=== PATIENT | female | born 1970 | race Caucasian/White ===

== ENCOUNTER 2016-05-08 11:09 | Emergency (ER) | payer MEDICAID ==
[2016-05-08] MEDS ORDERED: SODIUM CHLORIDE 0.9% 1,000 ML IV ONE (11:31)
[2016-05-08] MEDS ORDERED: NITROFURANTOIN MACRO 100 MG CAPSULE PO STA (13:55)
[2016-05-08] MEDS ORDERED: NITROFURANTOIN MACRO 100 MG CAPSULE PO ONE (13:58)
== END 2016-05-08 14:12 | disposition home or self-care (01) ==
DX: R55 Syncope and collapse (principal); N30.00 Acute cystitis without hematuria; S00.83XA Contusion of other part of head, initial encounter; S00.81XA Abrasion of other part of head, initial encounter; W18.30XA Fall on same level, unspecified, initial encounter; Y92.000 Kitchen of unspecified non-institutional (private) residence as the place of occurrence of the external cause; E03.9 Hypothyroidism, unspecified; F17.200 Nicotine dependence, unspecified, uncomplicated
CPT/HCPCS: 36415; 70450; 80053; 80306; 80307; 80320; 80329; 81001; 83690; 84484; 85025; 93005; 93010; 96360; 96361; 99284; 99285; A9270

== ENCOUNTER 2017-02-04 09:44 | Outpatient (CLI) | payer MEDICAID ==
[2017-02-04 13:48] LABS: BASOPHILS % (AUTO) 0.5 %; HCT - HEMATOCRIT 40.4 % (37.0-47.0); HGB - HEMOGLOBIN 13.4 g/dL (12.0-16.0); LYMPHOCYTES # (AUTO) 1.9 10^3/uL (1.5-3.5); LYMPHOCYTES % (AUTO) 25.7 %; MEAN CORPUSCULAR HEMOGLOBIN 30.4 pg (27.0-31.0); MEAN CORPUSCULAR VOLUME 92.1 fL (81.0-99.0); MEAN PLATELET VOLUME 8.5 fL (7.9-10.8); MONOCYTES # (AUTO) 0.2 10^3/uL (0.0-1.0); MONOCYTES % (AUTO) 3.2 %; NEUTROPHILS # (AUTO) 5.2 10^3/uL (1.5-6.6); NEUTROPHILS % (AUTO) 70.6 %; NUCLEATED RED BLOOD CELLS AUTO 0.1 /100WBC; RED BLOOD COUNT 4.39 10^6/uL (4.20-5.40); RED CELL DISTRIBUTION WIDTH 14.1 % (12.0-15.0); UNCORRECTED WHITE BLOOD COUNT 7.4 x10^3/uL; WHITE BLOOD COUNT 7.4 x10^3/uL (4.8-10.8)
[2017-02-04 14:12] LABS: ALBUMIN/GLOBULIN RATIO 1.5 (1.0-2.2); BILIRUBIN,TOTAL 0.3 mg/dL (0.2-1.0); BUN - BLOOD UREA NITROGEN 8 mg/dL (6-20); CALCIUM 9.6 mg/dL (8.5-10.3); CARBON DIOXIDE - CO2 27 mmol/L (21-32); CHLORIDE 101 mmol/L (101-111); CHOL/HDL RATIO 4.6 (<4.4); CHOLESTEROL 213 mg/dL; CREATININE 1.3 mg/dL (0.4-1.0); GFR - MDRD 44 (>89); GLUCOSE 88 mg/dL (70-100); HDL CHOLESTEROL 46 mg/dL; LDL/HDL RATIO 2.5 (<4.4); POTASSIUM 4.2 mmol/L (3.5-5.0); SODIUM 138 mmol/L (135-145); TOTAL PROTEIN 6.8 g/dL (6.7-8.2); TRIGLYCERIDES 265 mg/dL; VLDL CHOLESTEROL 53 mg/dL
== END 2017-02-04 09:45 | disposition home or self-care (01) ==
LOC: LAB.N 09:44
PROVIDERS: ATTEND Nurse Practitioner Gerontology
DX: E78.5 Hyperlipidemia, unspecified (principal); I10 Essential (primary) hypertension; E03.9 Hypothyroidism, unspecified
CPT/HCPCS: 36415; 80053; 80061; 84443; 85025

== ENCOUNTER 2017-11-29 14:03 | Emergency (ER) | payer MEDICAID ==
[2017-11-29] MEDS ORDERED: MORPHINE 2 MG/ML SYRINGE IVP STA (14:35)
[2017-11-29] MEDS ORDERED: ONDANSETRON 4 MG/2 ML VIAL IVP STA (14:35)
--- NOTE | 2017-11-29 14:38 | ED Physician Documentation ---
History of Present Illness - Stated complaint Stated Complaint: UPPER ABD PAIN - Chief complaint Chief Complaint: General - History obtained from History obtained from: Patient, Family - History of Present Illness Timing: Last night Pain level max: 8 Pain level now: 6 Improved by: nothing Worsened by: nothing - Additonal information Additional information: Patient is a 47-year-old female who presents to the emergency department complaining of upper abdominal pain since last night. She states that her stomach became hard and firm. States she had nausea but no vomiting. Started on Macrobid yesterday for a UTI. No other medication changes. No fevers. No vomiting or diarrhea. States the pain has continued today. Has not had similar pain in the past. She also states that occasionally over the past several months she feels like she does not have good strength on her left side, has an appointment with her PCP next week for this. Currently feels normal. also has mild frontal headache, similar to past headaches. Review of Systems Constitutional: denies: Fever, Chills Nose: denies: Rhinorrhea / runny nose, Congestion Respiratory: denies: Cough GI: reports: Nausea. denies: Vomiting, Diarrhea, Hematemesis Skin: denies: Rash Musculoskeletal: denies: Neck pain, Back pain Neurologic: denies: Focal weakness, Numbness, Headache PD PAST MEDICAL HISTORY - Past Medical History Past Medical History: Yes Respiratory: Asthma, Pneumonia Endocrine/Autoimmune: HyPOthyroidism Psych: Depression, Bipolar disorder - Past Surgical History Past Surgical History: No - Present Medications Home Medications: Ambulatory Orders Medication Instructions Recorded Confirmed LORazepam [Ativan] 0.5 mg PO HS 01/13/16 05/08/16 Levothyroxine [Synthroid] 100 mcg PO QDAC 01/13/16 05/08/16 Lisinopril 10 mg PO DAILY 01/13/16 05/08/16 Venlafaxine [Effexor] 37.5 mg PO DAILY 01/13/16 05/08/16 buPROPion [Wellbutrin Sr] 200 mg PO DAILY 01/13/16 05/08/16 Nitrofurantoin Monohyd/M-Cryst 100 mg PO BID 5 Days capsule 05/08/16 [Macrobid 100 mg Capsule] lamoTRIgine [LaMICtal] 150 mg PO BID 05/08/16 05/08/16 Aspirin 81 mg PO DAILY 11/29/17 11/29/17 Cephalexin [Keflex] 500 mg PO Q6H #20 capsule 11/29/17 HYDROcodone/ACET 7.5/325 [[place] 1 each PO Q6H PRN #10 tablet 11/29/17 7.5/325] Ondansetron Odt [Zofran] 4 mg TL Q6H PRN #10 tablet 11/29/17 traZODone [Desyrel] 100 mg PO DAILY PM 11/29/17 11/29/17 - Allergies Allergies/Adverse Reactions: Allergies Allergy/AdvReac Type Severity Reaction Status Date / Time divalproex sodium Allergy Unknown Verified 11/29/17 14:20 [From Depakote] lithium Allergy Cramps Verified 11/29/17 14:20 Penicillins Allergy Respiratory Verified 11/29/17 14:20 Sulfa (Sulfonamide Allergy Respiratory Verified 11/29/17 14:20 Antibiotics) - Social History Does the pt smoke?: Yes Smoking Status: Current every day smoker Does the pt drink ETOH?: No Does the pt have substance abuse?: No - Immunizations Immunizations are current?: Yes PD ED PE NORMAL - Vitals Vital signs reviewed: Yes - General General: Alert and oriented X 3, No acute distress - HEENT HEENT: Moist mucous membranes - Neck Neck: Supple, no meningeal sign - Cardiac Cardiac: RRR - Respiratory Respiratory: No respiratory distress, Clear bilaterally - Abdomen Abdomen: Soft, Non distended, Other (Tender palpation epigastric and right upper quadrant. Positive Alas sign) - Back Back: No CVA TTP, No spinal TTP - Derm Derm: Warm and dry, No rash - Neuro Neuro: Alert and oriented X 3 - Psych Psych: Normal mood, Normal affect Results - Vitals Vitals: Vital Signs - 24 hr 11/29/17 11/29/17 14:15 16:21 Temperature 37.1 C 36.2 C L Heart Rate 116 H 88 Respiratory 16 15 Rate Blood Pressure 103/69 94/61 O2 Saturation 96 96 Oxygen O2 Source Room air - Labs Labs: Laboratory Tests 11/29/17 11/29/17 14:40 14:40 WBC 9.0 RBC 4.02 L Hgb 12.4 Hct 35.9 L MCV 89.3 MCH 31.0 MCHC 34.7 RDW 14.1 Plt Count 201 MPV 7.5 L Neut # (Auto) 8.2 H Lymph # (Auto) 0.5 L [place] # (Auto) 0.3 Eos # (Auto) 0.0 Baso # (Auto) 0.0 Absolute Nucleated RBC 0.00 Nucleated RBC % 0.0 Sodium 131 L Potassium 3.6 Chloride 99 L Carbon Dioxide 25 Anion Gap 7.0 BUN 12 Creatinine 1.4 H Estimated GFR (MDRD) 40 L Glucose 106 H Calcium 8.3 L Total Bilirubin 1.4 H AST 129 H ALT 102 H Alkaline Phosphatase 145 H Total Protein 6.1 L Albumin 3.5 Globulin 2.6 Albumin/Globulin Ratio 1.3 Lipase 28 - Rads (name of study) Right upper quadrant ultrasound Radiology: Prelim report reviewed, EMP read contemporaneously, See rad report ( Normal right upper quadrant ultrasound. No cholecystitis) PD MEDICAL DECISION MAKING - ED course Complexity details: reviewed results, re-evaluated patient, considered differential, d/w patient ED course: Patient is a 47-year-old female who presents to the emergency department with epigastric pain last night and today. Resolved in the emergency department. Feels much better. Possible that she passed a small gallstone? Would explain her elevated LFTs as well. She is well-appearing, nontoxic. No acute findings on ultrasound. Will have her follow-up with her PCP for further care. Patient counseled regarding signs and symptoms for which I believe and urgent re- evaluation would be necessary. Patient with good understanding of and agreement to plan and is comfortable going home at this time This document was made in part using voice recognition software. While efforts are made to proofread this document, sound alike and grammatical errors may occur. Abdomen soft, nontender nondistended on serial exam We will also change her from Macrobid to Keflex as she has had this before and not had any prior reactions to it. Possible adverse reaction to the Macrobid? - Sepsis Event Vital Signs: Vital Signs - 24 hr 11/29/17 11/29/17 14:15 16:21 Temperature 37.1 C 36.2 C L Heart Rate 116 H 88 Respiratory 16 15 Rate Blood Pressure 103/69 94/61 O2 Saturation 96 96 Oxygen O2 Source Room air Departure - Departure Disposition: 01 Home, Self Care Clinical Impression: Elevated LFTs Abdominal pain Qualifiers: Abdominal location: right upper quadrant Qualified Code(s): R10.11 - Right upper quadrant pain UTI (urinary tract infection) Qualifiers: Urinary tract infection type: acute cystitis Hematuria presence: without hematuria Qualified Code(s): N30.00 - Acute cystitis without hematuria Condition: Good Instructions: ED Abdominal Pain Unkn Cause Follow-Up: Katalina Estrada ARNP [Primary Care Provider] - Prescriptions: Cephalexin [Keflex] 500 mg PO Q6H #20 capsule HYDROcodone/ACET 7.5/325 [[place] 7.5/325] 1 each PO Q6H PRN #10 tablet PRN Reason: Abdominal Pain Ondansetron Odt [Zofran] 4 mg TL Q6H PRN #10 tablet PRN Reason: Nausea / Vomiting Comments: Stop the Macrobid and start the Keflex. Return if you worsen. Follow-up with your doctor for further evaluation and care. Do not drink alcohol or drive while on narcotic pain medicine. Note that many narcotic pain relievers also contain tylenol/acetaminophen. Please ensure that your total dose of acetaminophen from all sources does not exceed 3 grams (3000mg) per day. You may constipated on this medication, take a stool softener such as "Colace" twice a day while you are on it. Also recommend a unot-gwe-xlgicov laxative such as senna or MiraLAX any day that you do not have a bowel movement. If you received narcotic pain medication in the emergency department, do not drive or operate machinery for the next 24 hours. Discharge Date/Time: 11/29/17 16:32
[2017-11-29 14:54] LABS: BASOPHILS % (AUTO) 0.4 %; HGB - HEMOGLOBIN 12.4 g/dL (12.0-16.0); LYMPHOCYTES # (AUTO) 0.5 10^3/uL (1.5-3.5); LYMPHOCYTES % (AUTO) 5.8 %; MEAN CORPUSCULAR HGB CONC 34.7 g/dL (32.0-36.0); MEAN CORPUSCULAR VOLUME 89.3 fL (81.0-99.0); MEAN PLATELET VOLUME 7.5 fL (7.9-10.8); MONOCYTES # (AUTO) 0.3 10^3/uL (0.0-1.0); MONOCYTES % (AUTO) 2.8 %; NEUTROPHILS # (AUTO) 8.2 10^3/uL (1.5-6.6); PLT - PLATELET COUNT 201 10^3/uL (130-450); RED BLOOD COUNT 4.02 10^6/uL (4.20-5.40); RED CELL DISTRIBUTION WIDTH 14.1 % (12.0-15.0)
[2017-11-29 15:06] LABS: ALBUMIN 3.5 g/dL (3.2-5.5); ALBUMIN/GLOBULIN RATIO 1.3 (1.0-2.2); BILIRUBIN,TOTAL 1.4 mg/dL (0.2-1.0); CALCIUM 8.3 mg/dL (8.5-10.3); CREATININE 1.4 mg/dL (0.4-1.0); TOTAL PROTEIN 6.1 g/dL (6.7-8.2)
[2017-11-29] MEDS ORDERED: SODIUM CHLORIDE 0.9% 1,000 ML IV ONE (15:13)
--- NOTE | 2017-11-29 15:44 | Ultrasound Report ---
Reason: RUQ abd pain Procedure Date: 11/29/2017 Accession Number: [id number] / [id number] Procedure: US - Abdomen Limited CPT Code: FULL RESULT: EXAM: ABDOMEN ULTRASOUND LIMITED, RUQ EXAM DATE: 11/29/2017 03:31 PM. CLINICAL HISTORY: Right upper quadrant pain COMPARISON: None. TECHNIQUE: Real-time scanning was performed with static images obtained. FINDINGS: Liver: Normal in size and echotexture. 16.5 cm. Main portal vein flow: Hepatopetal. Gallbladder: Normal. No stones, wall thickening, or sonographic Alas's sign. Biliary System: CBD measures 3 mm. No intrahepatic or extrahepatic ductal dilatation. Other: No right hydronephrosis. IMPRESSION: Normal. No cholelithiasis or cholecystitis. RADIA
[2017-11-29 16:22] VITALS: BP 94/61
== END 2017-11-29 16:32 | disposition home or self-care (01) ==
LOC: ED 14:03
DX: R10.11 Right upper quadrant pain (principal); R10.13 Epigastric pain; R74.8 Abnormal levels of other serum enzymes; N30.00 Acute cystitis without hematuria; E03.9 Hypothyroidism, unspecified; F17.200 Nicotine dependence, unspecified, uncomplicated; Z79.82 Long term (current) use of aspirin
CPT/HCPCS: 36415; 76705; 80053; 83690; 85025; 96361; 96374; 99283; J2270

== ENCOUNTER 2017-11-30 12:50 | Emergency (ER) | payer MEDICAID ==
--- NOTE | 2017-11-30 13:25 | ED Physician Documentation ---
PD HPI ABD PAIN - Stated complaint Stated Complaint: AB PX - Chief complaint Chief Complaint: Abd Pain - History obtained from History obtained from: Patient, Family - History of Present Illness Timing - onset: How many hours ago (2) Timing - duration: Hours (2) Timing - details: Abrupt onset Pain level max: 10 Pain level now: 10 Quality: Aching, Pain Location: RUQ, Epigastric Radiation: Other (non-radiating) Improved by: Other (nothing) Worsened by: Eating, Palpation Associated symptoms: Nausea. No: Fever, Vomiting, Hematemesis, Diarrhea, Constipation, Melena, Hematochezia, Dysuria Similar symptoms before: Diagnosis (possible GERD) Recently seen: Emergency Dept (seen here yesterday for same. normal US.) Review of Systems Ten Systems: 10 systems reviewed and negative Constitutional: denies: Fever, Chills Nose: denies: Rhinorrhea / runny nose, Congestion Respiratory: denies: Cough GI: denies: Diarrhea, Hematemesis, Bloody / black stool Skin: denies: Rash Musculoskeletal: denies: Neck pain, Back pain Neurologic: denies: Headache PD PAST MEDICAL HISTORY - Past Medical History Respiratory: Asthma, Pneumonia Endocrine/Autoimmune: HyPOthyroidism Psych: Depression, Bipolar disorder - Past Surgical History Past Surgical History: No - Present Medications Home Medications: Ambulatory Orders Medication Instructions Recorded Confirmed LORazepam [Ativan] 0.5 mg PO HS 01/13/16 05/08/16 Levothyroxine [Synthroid] 100 mcg PO QDAC 01/13/16 05/08/16 Lisinopril 10 mg PO DAILY 01/13/16 05/08/16 Venlafaxine [Effexor] 37.5 mg PO DAILY 01/13/16 05/08/16 buPROPion [Wellbutrin Sr] 200 mg PO DAILY 01/13/16 05/08/16 Nitrofurantoin Monohyd/M-Cryst 100 mg PO BID 5 Days capsule 05/08/16 [Macrobid 100 mg Capsule] lamoTRIgine [LaMICtal] 150 mg PO BID 05/08/16 05/08/16 Aspirin 81 mg PO DAILY 11/29/17 11/29/17 Cephalexin [Keflex] 500 mg PO Q6H #20 capsule 11/29/17 HYDROcodone/ACET 7.5/325 [[place] 1 each PO Q6H PRN #10 tablet 11/29/17 7.5/325] Ondansetron Odt [Zofran] 4 mg TL Q6H PRN #10 tablet 11/29/17 traZODone [Desyrel] 100 mg PO DAILY PM 11/29/17 11/29/17 Omeprazole [PriLOSEC] 20 mg PO DAILY #30 capsule 11/30/17 Oxycodone HCl/Acetaminophen 1 - 2 each PO Q6H PRN #10 tablet 11/30/17 [Percocet 5-325 mg Tablet] Sucralfate [Carafate] 1 gm PO ACHS #60 tablet 11/30/17 - Allergies Allergies/Adverse Reactions: Allergies Allergy/AdvReac Type Severity Reaction Status Date / Time divalproex sodium Allergy Unknown Verified 11/29/17 14:20 [From Depakote] lithium Allergy Cramps Verified 11/29/17 14:20 Penicillins Allergy Respiratory Verified 11/29/17 14:20 Sulfa (Sulfonamide Allergy Respiratory Verified 11/30/17 13:04 Antibiotics) - Social History Does the pt smoke?: Yes Smoking Status: Current every day smoker Does the pt drink ETOH?: No Does the pt have substance abuse?: No - Immunizations Immunizations are current?: Yes PD ED PE NORMAL - Vitals Vital signs reviewed: Yes - General General: Alert and oriented X 3, No acute distress - HEENT HEENT: Moist mucous membranes - Neck Neck: Supple, no meningeal sign - Cardiac Cardiac: RRR - Respiratory Respiratory: No respiratory distress, Clear bilaterally - Abdomen Abdomen: Soft, Other (Tender palpation epigastric and right upper quadrant without peritoneal signs) - Back Back: No spinal TTP - Derm Derm: Warm and dry - Extremities Extremities: No calf tenderness / cord - Neuro Neuro: Alert and oriented X 3 - Psych Psych: Normal mood, Normal affect Results - Vitals Vitals: Vital Signs - 24 hr 11/30/17 11/30/17 13:01 15:00 Temperature 36.2 C L Heart Rate 106 H 96 Respiratory 20 18 Rate Blood Pressure 105/75 106/72 O2 Saturation 98 98 Oxygen O2 Source Room air - Labs Labs: Laboratory Tests 11/30/17 11/30/17 14:23 14:23 WBC 6.2 RBC 4.12 L Hgb 12.6 Hct 36.9 L MCV 89.7 MCH 30.6 MCHC 34.1 RDW 14.2 Plt Count 191 MPV 7.7 L Neut # (Auto) 4.7 Lymph # (Auto) 1.3 L [place] # (Auto) 0.2 Eos # (Auto) 0.0 Baso # (Auto) 0.0 Absolute Nucleated RBC 0.00 Nucleated RBC % 0.0 Sodium 135 Potassium 3.6 Chloride 99 L Carbon Dioxide 26 Anion Gap 10.0 BUN 14 Creatinine 1.4 H Estimated GFR (MDRD) 40 L Glucose 80 Calcium 8.8 Total Bilirubin 1.3 H AST 51 H ALT 67 H Alkaline Phosphatase 183 H Total Protein 6.7 Albumin 3.6 Globulin 3.1 Albumin/Globulin Ratio 1.2 Lipase 34 - Rads (name of study) CT abdomen and pelvis Radiology: Prelim report reviewed, EMP read contemporaneously, See rad report ( normal) PD MEDICAL DECISION MAKING - ED course Complexity details: reviewed old records (prior ED visit), reviewed results, re- evaluated patient, considered differential, d/w patient ED course: Patient with epigastric pain today. well controlled in the ED and tolerating PO without diff. Liver function tests have improved. Normal CT scan. We will treat his gastritis. Will start on Carafate, Prilosec. Patient counseled regarding signs and symptoms for which I believe and urgent re-evaluation would be necessary. Patient with good understanding of and agreement to plan and is comfortable going home at this time This document was made in part using voice recognition software. While efforts are made to proofread this document, sound alike and grammatical errors may occur. - Sepsis Event Vital Signs: Vital Signs - 24 hr 11/30/17 11/30/17 13:01 15:00 Temperature 36.2 C L Heart Rate 106 H 96 Respiratory 20 18 Rate Blood Pressure 105/75 106/72 O2 Saturation 98 98 Oxygen O2 Source Room air Departure - Departure Disposition: Home, Self Care Clinical Impression: Gastritis Qualifiers: Gastritis type: unspecified gastritis Chronicity: acute Gastritis bleeding: without bleeding Qualified Code(s): K29.00 - Acute gastritis without bleeding Condition: Good Instructions: ED PUD Vs Gastritis Follow-Up: Katalina Estrada [employer] [Primary Care Provider] - Within 3 Days Prescriptions: Omeprazole [PriLOSEC] 20 mg PO DAILY #30 capsule Oxycodone HCl/Acetaminophen [Percocet 5-325 mg Tablet] 1 - 2 each PO Q6H PRN # 10 tablet PRN Reason: pain Sucralfate [Carafate] 1 gm PO ACHS #60 tablet Comments: Eat a bland diet. Return if you worsen. This should improve over the next few days. Do not drink alcohol or drive while on narcotic pain medicine. Note that many narcotic pain relievers also contain tylenol/acetaminophen. Please ensure that your total dose of acetaminophen from all sources does not exceed 3 grams (3000mg) per day. You may constipated on this medication, take a stool softener such as "Colace" twice a day while you are on it. Also recommend a xogu-poc-isgbvbi laxative such as senna or MiraLAX any day that you do not have a bowel movement. If you received narcotic pain medication in the emergency department, do not drive or operate machinery for the next 24 hours. Discharge Date/Time: 11/30/17 16:30
[2017-11-30] MEDS ORDERED: SODIUM CHLORIDE 0.9% 1,000 ML IV ONE ×2 (13:43)
[2017-11-30] MEDS ORDERED: HYDROmorphone 1 MG/ML CARPUJECT IVP STA (13:43)
[2017-11-30] MEDS ORDERED: IOPAMIDOL-300 100 ML VIAL ONE (13:55)
[2017-11-30] MEDS ORDERED: IOPAMIDOL-300 50 ML VIAL ONE (13:56)
[2017-11-30 14:27] LABS: BASOPHILS % (AUTO) 0.4 %; HGB - HEMOGLOBIN 12.6 g/dL (12.0-16.0); LYMPHOCYTES # (AUTO) 1.3 10^3/uL (1.5-3.5); LYMPHOCYTES % (AUTO) 20.4 %; MEAN CORPUSCULAR HEMOGLOBIN 30.6 pg (27.0-31.0); MEAN CORPUSCULAR HGB CONC 34.1 g/dL (32.0-36.0); MEAN CORPUSCULAR VOLUME 89.7 fL (81.0-99.0); MEAN PLATELET VOLUME 7.7 fL (7.9-10.8); MONOCYTES # (AUTO) 0.2 10^3/uL (0.0-1.0); NEUTROPHILS # (AUTO) 4.7 10^3/uL (1.5-6.6); NEUTROPHILS % (AUTO) 75.2 %; PLT - PLATELET COUNT 191 10^3/uL (130-450); RED BLOOD COUNT 4.12 10^6/uL (4.20-5.40); RED CELL DISTRIBUTION WIDTH 14.2 % (12.0-15.0); WHITE BLOOD COUNT 6.2 x10^3/uL (4.8-10.8)
[2017-11-30 14:40] LABS: ALBUMIN 3.6 g/dL (3.2-5.5); ALBUMIN/GLOBULIN RATIO 1.2 (1.0-2.2); BILIRUBIN,TOTAL 1.3 mg/dL (0.2-1.0); CALCIUM 8.8 mg/dL (8.5-10.3); CREATININE 1.4 mg/dL (0.4-1.0); TOTAL PROTEIN 6.7 g/dL (6.7-8.2)
[2017-11-30] MEDS ORDERED: IOPAMIDOL-300 100 ML VIAL IVP ONE (15:21)
--- NOTE | 2017-11-30 15:43 | CT Report ---
Reason: upper abd pain Procedure Date: 11/30/2017 Accession Number: [id number] / [id number] Procedure: CT - Abdomen/Pelvis W/ CPT Code: FULL RESULT: EXAM: CT ABDOMEN AND PELVIS EXAM DATE: 11/30/2017 03:21 PM. CLINICAL HISTORY: Upper abdominal pain COMPARISONS: None. TECHNIQUE: Routine helical CT imaging was performed through the abdomen and pelvis. IV contrast: 100 mm Isovue-300. Enteric contrast: Yes. Reconstructions: Coronal and sagittal. In accordance with CT protocol optimization, one or more of the following dose reduction techniques were utilized for this exam: automated exposure control, adjustment of mA and/or KV based on patient size, or use of iterative reconstructive technique. FINDINGS: Lung Bases: Unremarkable. Liver: Normal. No masses. Gallbladder/Bile Ducts: Unremarkable. Spleen: Normal. Pancreas: Normal. Adrenal Glands: Normal. Kidneys: Normal. No masses or hydronephrosis. Peritoneal Cavity/Bowel: Normal. No free fluid, free air or adenopathy. No masses or acute inflammatory process. The appendix is well visualized and normal. Pelvic Organs: Normal. The bladder and visualized pelvic organs are within normal limits. Vasculature: No aneurysms or other significant abnormality. Bones: No significant abnormality. Other: None. IMPRESSION: Normal abdomen and pelvis CT. RADIA
[2017-11-30] MEDS ORDERED: oxyCODONE 5 MG TABLET PO STA (16:10)
[2017-11-30 16:26] VITALS: BP 106/72
== END 2017-11-30 16:30 | disposition home or self-care (01) ==
LOC: ED 12:50
DX: K29.00 Acute gastritis without bleeding (principal); F17.200 Nicotine dependence, unspecified, uncomplicated
CPT/HCPCS: 36415; 74177; 80053; 83690; 85025; 96361; 96374; 99283; 99284; A9270; J1170; Q9967

== ENCOUNTER 2017-12-16 11:52 | Emergency (ER) | payer MEDICAID ==
--- NOTE | 2017-12-16 14:22 | ED Physician Documentation ---
PD HPI FOCAL NEURO - History obtained from History obtained from: Patient <Tin Gibson - Last Filed: 12/16/17 14:22> - History obtained from History obtained from: Patient - History of Present Illness Timing - onset: Today (About a week and a half ago she developed a sudden pain in the occiput that radiated up towards the vertex of the head. Since then she has had increase of chronic tremulousness and she started to notice left-sided deficits and clumsiness with the left foot. She tripped and fell yesterday because of it. She is on no new medications.) <Nahid Yu - Last Filed: 12/16/17 16:42> - Stated complaint Stated Complaint: UNCONTROLLED MOVEMENT R SIDE - Chief complaint Chief Complaint: General Review of Systems Ten Systems: 10 systems reviewed and negative Constitutional: denies: Fever, Chills Cardiac: denies: Chest pain / pressure, Palpitations Respiratory: denies: Dyspnea, Cough GI: denies: Abdominal Pain <Nahid Yu - Last Filed: 12/16/17 16:42> PD PAST MEDICAL HISTORY - Past Medical History Respiratory: Asthma, Pneumonia Endocrine/Autoimmune: HyPOthyroidism Psych: Depression, Bipolar disorder - Past Surgical History Past Surgical History: No - Social History Does the pt smoke?: Yes Smoking Status: Current every day smoker Does the pt drink ETOH?: No Does the pt have substance abuse?: No - Immunizations Immunizations are current?: Yes <Tin Gibson - Last Filed: 12/16/17 14:22> <Nahid Yu - Last Filed: 12/16/17 16:42> - Present Medications Home Medications: Ambulatory Orders Medication Instructions Recorded Confirmed LORazepam [Ativan] 0.5 mg PO HS 01/13/16 05/08/16 Levothyroxine [Synthroid] 100 mcg PO QDAC 01/13/16 05/08/16 Lisinopril 10 mg PO DAILY 01/13/16 05/08/16 Venlafaxine [Effexor] 37.5 mg PO DAILY 01/13/16 05/08/16 buPROPion [Wellbutrin Sr] 200 mg PO DAILY 01/13/16 05/08/16 Nitrofurantoin Monohyd/M-Cryst 100 mg PO BID 5 Days capsule 05/08/16 [Macrobid 100 mg Capsule] lamoTRIgine [LaMICtal] 150 mg PO BID 05/08/16 05/08/16 Aspirin 81 mg PO DAILY 11/29/17 11/29/17 Cephalexin [Keflex] 500 mg PO Q6H #20 capsule 11/29/17 HYDROcodone/ACET 7.5/325 [[place] 1 each PO Q6H PRN #10 tablet 11/29/17 7.5/325] Ondansetron Odt [Zofran] 4 mg TL Q6H PRN #10 tablet 11/29/17 traZODone [Desyrel] 100 mg PO DAILY PM 11/29/17 11/29/17 Omeprazole [PriLOSEC] 20 mg PO DAILY #30 capsule 11/30/17 Oxycodone HCl/Acetaminophen 1 - 2 each PO Q6H PRN #10 tablet 11/30/17 [Percocet 5-325 mg Tablet] Sucralfate [Carafate] 1 gm PO ACHS #60 tablet 11/30/17 Lorazepam [Ativan] 1 mg PO TID PRN #20 tablet 12/16/17 - Allergies Allergies/Adverse Reactions: Allergies Allergy/AdvReac Type Severity Reaction Status Date / Time divalproex sodium Allergy Unknown Verified 12/16/17 12:10 [From Depakote] lithium Allergy Cramps Verified 12/16/17 12:10 Penicillins Allergy Respiratory Verified 12/16/17 12:10 Sulfa (Sulfonamide Allergy Respiratory Verified 12/16/17 12:10 Antibiotics) PD ED PE NORMAL - Vitals Vital signs reviewed: Yes - General General: Alert and oriented X 3, Other (She is tremulous with perioral movements consistent with an akathisia or dystonic reaction, however she is not on any new medications that would seem to cause this.) - HEENT HEENT: PERRL, EOMI - Neck Neck: Supple, no meningeal sign, No bony TTP - Cardiac Cardiac: RRR, No murmur - Respiratory Respiratory: No respiratory distress, Clear bilaterally - Abdomen Abdomen: Normal bowel sounds, Soft, Non tender - Back Back: No CVA TTP, No spinal TTP - Derm Derm: Normal color, Warm and dry - Neuro Neuro: Alert and oriented X 3, Normal speech Eye Opening: Spontaneous Motor: Obeys Commands Verbal: Oriented GCS Score: 15 - Psych Psych: Normal mood, Normal affect <Nahid Yu M - Last Filed: 12/16/17 16:42> NIHSS - Time Time: 14:25 - Level of Consciousness Level of consciousness: (0) Alert, Keenly responsive LOC Questions: (0) Answers both Q's correct LOC Commands: (0) Performs both correctly - Gaze Best Gaze: (0) Normal - Visual Visual: (0) No loss - Facial Palsy Facial Palsy: (0) Normal, symmetrical movement - Motor Arms (both separate) Motor Arm (right): (0) No drift Motor Arm (left): (0) No drift - Motor Legs (both separate) Motor Leg (right): (0) No drift Motor Leg (left): (0) No drift - Limb Ataxia Limb Ataxia: (1) Present in 1 limb (Left upper extremity) - Sensory Sensory: (1) Wyaf-rx-[id number] loss (Left upper extremity) - Best Language Best Language: (0) No aphasia - Dysarthria Dysarthria: (0) Normal - Extinction and Inattention (formally neg Extinction and inattention: (0) No abnormality - Total Score/Results Total Score/Result: 2 <Nahid Yu M - Last Filed: 12/16/17 16:42> Results - Rads (name of study) CTA head and neck Radiology: EMP read contemporaneously (There is a small aneurysm, 1.5 mm without other obvious abnormalities.) <Nahid Yu M - Last Filed: 12/16/17 16:42> - Vitals Vitals: Vital Signs - 24 hr 12/16/17 12/16/17 12:04 16:33 Temperature 37.1 C 37.4 C Heart Rate 98 83 Respiratory 22 Rate Blood Pressure 133/82 H O2 Saturation 100 Oxygen O2 Source Room air - Labs Labs: Laboratory Tests 12/16/17 12/16/17 14:40 14:40 WBC 7.1 RBC 4.44 Hgb 13.5 Hct 40.0 MCV 90.0 MCH 30.4 MCHC 33.7 RDW 14.6 Plt Count 246 MPV 8.1 Neut # (Auto) 4.9 Lymph # (Auto) 1.7 [place] # (Auto) 0.4 Eos # (Auto) 0.0 Baso # (Auto) 0.1 Absolute Nucleated RBC 0.00 Nucleated RBC % 0.0 Sodium 136 Potassium 4.1 Chloride 101 Carbon Dioxide 25 Anion Gap 10.0 BUN 12 Creatinine 1.4 H Estimated GFR (MDRD) 40 L Glucose 105 H Calcium 9.1 Total Bilirubin 0.6 AST 19 ALT 14 Alkaline Phosphatase 125 H Total Protein 6.8 Albumin 4.1 Globulin 2.7 Albumin/Globulin Ratio 1.5 Lipase 30 PD MEDICAL DECISION MAKING <Tin Gibson - Last Filed: 12/16/17 14:22> <Nahid Yu - Last Filed: 12/16/17 16:42> - ED course ED course: 47-year-old woman presents with motions that look like an akathisia or medicati on reaction. She is on ondansetron and that is a known reaction to this medication and I suspect that is what caused it because the timing is right from when she started it. She did not have much help with shot of Benadryl here. Her CT angiogram showed no acute changes, she does have a small aneurysm which is too small to be causing symptoms but watchful waiting and recheck with MRA in 6 months was advised. (Nahid Yu) - Sepsis Event Vital Signs: Vital Signs - 24 hr 12/16/17 12/16/17 12:04 16:33 Temperature 37.1 C 37.4 C Heart Rate 98 83 Respiratory 22 Rate Blood Pressure 133/82 H O2 Saturation 100 Oxygen O2 Source Room air Departure <Tin Gibson - Last Filed: 12/16/17 14:22> - Departure Record reviewed to determine appropriate education?: Yes <Nahid Yu - Last Filed: 12/16/17 16:42> - Departure Disposition: 01 Home, Self Care Clinical Impression: Tremor, Akathisia, Intracranial aneurysm Condition: Good Prescriptions: Lorazepam [Ativan] 1 mg PO TID PRN #20 tablet PRN Reason: Anxiety Comments: Stop the nausea medication you are on. I suspect that is causing the tremors and neurologic symptoms. You can use the Ativan for anxiety, tremors, or nausea. Take all of your medications with you to your next doctor's appointment and speak with your primary care physician about a neurologic referral if symptoms do not improve. As discussed you have a tiny aneurysm and you need an MRA of your brain in 6 months to make sure it is not growing. Return for new or worsening symptoms.
[2017-12-16] MEDS ORDERED: diphenhydrAMINE INJ 50 MG/ML VIAL IM STA (14:26)
[2017-12-16] MEDS ORDERED: IOPAMIDOL-300 100 ML VIAL ONE (14:30)
[2017-12-16 14:48] LABS: BASOPHILS # (AUTO) 0.1 10^3/uL (0.0-0.1); BASOPHILS % (AUTO) 1.1 %; HGB - HEMOGLOBIN 13.5 g/dL (12.0-16.0); LYMPHOCYTES # (AUTO) 1.7 10^3/uL (1.5-3.5); LYMPHOCYTES % (AUTO) 24.6 %; MEAN CORPUSCULAR HEMOGLOBIN 30.4 pg (27.0-31.0); MEAN CORPUSCULAR HGB CONC 33.7 g/dL (32.0-36.0); MEAN PLATELET VOLUME 8.1 fL (7.9-10.8); MONOCYTES # (AUTO) 0.4 10^3/uL (0.0-1.0); MONOCYTES % (AUTO) 5.5 %; NEUTROPHILS # (AUTO) 4.9 10^3/uL (1.5-6.6); NEUTROPHILS % (AUTO) 68.8 %; PLT - PLATELET COUNT 246 10^3/uL (130-450); RED BLOOD COUNT 4.44 10^6/uL (4.20-5.40); RED CELL DISTRIBUTION WIDTH 14.6 % (12.0-15.0); WHITE BLOOD COUNT 7.1 x10^3/uL (4.8-10.8)
[2017-12-16 14:59] LABS: ALBUMIN 4.1 g/dL (3.2-5.5); ALBUMIN/GLOBULIN RATIO 1.5 (1.0-2.2); BILIRUBIN,TOTAL 0.6 mg/dL (0.2-1.0); CALCIUM 9.1 mg/dL (8.5-10.3); CREATININE 1.4 mg/dL (0.4-1.0); TOTAL PROTEIN 6.8 g/dL (6.7-8.2)
[2017-12-16] MEDS ORDERED: SODIUM CHLORIDE 0.9% 1,000 ML IV ONE (15:23)
[2017-12-16] MEDS ORDERED: IOPAMIDOL-300 100 ML VIAL IVP ONE (15:42)
--- NOTE | 2017-12-16 16:23 | CT Report ---
Reason: Lindsay goetz Procedure Date: 12/16/2017 Accession Number: [id number] / [id number] Procedure: CT - Head Angio CPT Code: FULL RESULT: EXAM: CT ANGIOGRAM HEAD. CT SCAN OF THE HEAD WITHOUT AND WITH CONTRAST. EXAM DATE: 12/16/2017 03:43 PM CLINICAL HISTORY: Left-sided deficits COMPARISON: HEAD W/O 05/08/2016. TECHNIQUE: - CT Scan Head: Using a multidetector scanner, axial images were acquired from the foramen magnum to the skull vertex prior to and following contrast administration. - CT Angiogram: Using a multidetector scanner, high-resolution axial images were acquired from the skull base through vertex following rapid infusion of intravenous contrast. Reformats: Multiplanar MIP reformats were reconstructed. Nascet criteria used for stenosis measurement. IV Contrast: ISOVUE 300 80mL. In accordance with CT protocol optimization, one or more of the following dose reduction techniques were utilized for this exam: automated exposure control, adjustment of mA and/or KV based on patient size, or use of iterative reconstructive technique. FINDINGS: Non Contrast Head: There is no mass, mass effect, midline shift or abnormal extraaxial fluid collection. Size and configuration of the ventricles appear normal. There is no intracranial hemorrhage. Obrien white matter differentiation is maintained. Brain stem and cerebellum appear unremarkable. Calvarium and skull base appear intact and normal. Orbits and extracranial soft tissue appear unremarkable. Post contrast CT Head: No abnormal enhancement. Obrien white matter differentiation appear preserved. Dural venous sinus and deep cerebral veins appear normal. CTA HEAD: Anterior Circulation: 1.5 mm posterior lateral projecting aneurysm from the supraclinoid left ICA (image 65 series 14, axial image 86 series 7). The internal carotid arteries (ICA), middle cerebral arteries (MCA), and anterior cerebral arteries (ZA) are patent bilaterally. The anterior communicating artery (A-COM) appears patent. No other aneurysms, stenoses, or anatomic anomalies evident. Posterior Circulation: The superior vertebral artery, basilar, and posterior cerebral arteries (MAINTENANCE SPECIALIST) are patent. No aneurysms, stenoses, or anomalies evident. The posterior communicating arteries (P-COM) are hypoplastic bilaterally. IMPRESSION: CT Head: No acute intracranial abnormality. Specifically, no evidence of acute infarct, hemorrhage, or mass lesion. No abnormal enhancement. CTA Head: 1. No significant intracranial arterial stenosis. 2. 1.5 mm posterior lateral projecting aneurysm from the supraclinoid left ICA. RADIA
--- NOTE | 2017-12-16 16:29 | CT Report ---
Reason: Lindsay goetz Procedure Date: 12/16/2017 Accession Number: [id number] / [id number] Procedure: CT - Neck Angio CPT Code: FULL RESULT: EXAM: CT ANGIOGRAM NECK EXAM DATE: 12/16/2017 03:43 PM. CLINICAL HISTORY: Lindsay goetz. COMPARISON: HEAD W/O 05/08/2016 XR CHEST PA AND LAT 12/29/2008. TECHNIQUE: Routine axial helical imaging was performed from the skull base through the aortic arch. Reconstructions: Routine multiplanar 3D MIP reconstructions. IV Contrast: ISOVUE 300 80mL. Evaluation of arterial stenosis is based on a NASCET method of measurement. In accordance with CT protocol optimization, one or more of the following dose reduction techniques were utilized for this exam: automated exposure control, adjustment of mA and/or KV based on patient size, or use of iterative reconstructive technique. FINDINGS: Significant motion artifacts (likely from swallowing) during acquisition of CTA neck images. Right Carotid: Common carotid artery, external carotid artery and internal carotid arteries appear grossly patent. Significant motion artifacts at the right bifurcation. Tortuosity and looping of the mid right ICA without apparent stenosis. No evidence to suggest dissection accounting for motion artifacts. Left Carotid: Common carotid artery, external carotid artery and internal carotid arteries appear patent. Motion artifacts most pronounced at the carotid bifurcation and above, with looping of the mid left ICA. No evidence for significant stenosis. No evidence for dissection accounting for artifacts. Vertebrals: Motion artifacts predominantly affecting the distal V2 and V3 segments of the vertebral arteries. No significant stenosis identified. No evidence for dissection accounting for motion artifacts. Visible lungs are clear. Visible aortic arch and pulmonary artery appear unremarkable. Mild multilevel degenerative changes of the cervical spine without suspicious lytic or sclerotic osseous lesions. IMPRESSION: 1. Significant swallowing motion artifacts at the level of the larynx, carotid bifurcation to the skull base. 2. No significant cervical carotid or vertebral artery stenosis accounting for motion artifacts. No evidence to suggest dissection accounting for motion artifacts. RADIA
[2017-12-16 16:45] VITALS: BP 115/75
== END 2017-12-16 17:22 | disposition home or self-care (01) ==
LOC: ED 11:52
DX: G25.71 Drug induced akathisia (principal); I67.1 Cerebral aneurysm, nonruptured; F41.9 Anxiety disorder, unspecified; E03.9 Hypothyroidism, unspecified; F17.200 Nicotine dependence, unspecified, uncomplicated; Z79.82 Long term (current) use of aspirin
CPT/HCPCS: 36415; 70496; 70498; 80053; 83690; 85025; 96361; 96372; 96374; 99283; J1200; Q9967

== ENCOUNTER 2018-01-13 12:57 | Emergency (ER) | payer MEDICAID ==
[2018-01-13] MEDS ORDERED: LIDOCAINE VISCOUS 2% 15 ML UDC MM STA (14:18)
[2018-01-13] MEDS ORDERED: MAG HYDROX/AL HYDROX/SIMETH 30 ML UDC PO STA (14:18)
--- NOTE | 2018-01-13 14:21 | ED Physician Documentation ---
PD HPI ABD PAIN - Stated complaint Stated Complaint: ABD PAIN - Chief complaint Chief Complaint: Abd Pain - History obtained from History obtained from: Patient - History of Present Illness Timing - onset: Other (47-year-old woman with long-standing epigastric pain. Presumed right gastritis. Has had negative CT and ultrasound recently. She had to come off of her omeprazole for a breath test next week, I presume he will come back to pylori breath test. Unfortunately that made her epigastric pain much worse. It is worse after eating and she has nausea but no diarrhea or changes in bowel movements. No fevers. No weight loss.) Review of Systems Constitutional: reports: Reviewed and negative Cardiac: denies: Chest pain / pressure, Palpitations Respiratory: denies: Dyspnea, Cough PD PAST MEDICAL HISTORY - Past Medical History Respiratory: Asthma, Pneumonia Endocrine/Autoimmune: HyPOthyroidism Psych: Depression, Bipolar disorder - Past Surgical History Past Surgical History: No - Present Medications Home Medications: Ambulatory Orders Medication Instructions Recorded Confirmed LORazepam [Ativan] 0.5 mg PO HS 01/13/16 05/08/16 Levothyroxine [Synthroid] 100 mcg PO QDAC 01/13/16 05/08/16 Lisinopril 10 mg PO DAILY 01/13/16 05/08/16 Venlafaxine [Effexor] 37.5 mg PO DAILY 01/13/16 05/08/16 buPROPion [Wellbutrin Sr] 200 mg PO DAILY 01/13/16 05/08/16 Nitrofurantoin Monohyd/M-Cryst 100 mg PO BID 5 Days capsule 05/08/16 [Macrobid 100 mg Capsule] lamoTRIgine [LaMICtal] 150 mg PO BID 05/08/16 05/08/16 Aspirin 81 mg PO DAILY 11/29/17 11/29/17 Cephalexin [Keflex] 500 mg PO Q6H #20 capsule 11/29/17 HYDROcodone/ACET 7.5/325 [[place] 1 each PO Q6H PRN #10 tablet 11/29/17 7.5/325] Ondansetron Odt [Zofran] 4 mg TL Q6H PRN #10 tablet 11/29/17 traZODone [Desyrel] 100 mg PO DAILY PM 11/29/17 11/29/17 Omeprazole [PriLOSEC] 20 mg PO DAILY #30 capsule 11/30/17 Oxycodone HCl/Acetaminophen 1 - 2 each PO Q6H PRN #10 tablet 11/30/17 [Percocet 5-325 mg Tablet] Sucralfate [Carafate] 1 gm PO ACHS #60 tablet 11/30/17 Lorazepam [Ativan] 1 mg PO TID PRN #20 tablet 12/16/17 Omeprazole 20 mg PO DAILY #20 capsule. 01/13/18 - Allergies Allergies/Adverse Reactions: Allergies Allergy/AdvReac Type Severity Reaction Status Date / Time divalproex sodium Allergy Unknown Verified 01/13/18 13:22 [From Depakote] lithium Allergy Cramps Verified 01/13/18 13:22 Penicillins Allergy Respiratory Verified 01/13/18 13:22 Sulfa (Sulfonamide Allergy Respiratory Verified 01/13/18 13:22 Antibiotics) - Social History Does the pt smoke?: Yes Smoking Status: Current every day smoker Does the pt drink ETOH?: No Does the pt have substance abuse?: No - Immunizations Immunizations are current?: Yes PD ED PE NORMAL - Vitals Vital signs reviewed: Yes - General General: Alert and oriented X 3, No acute distress - Abdomen Abdomen: Normal bowel sounds, Soft, Non tender - Neuro Neuro: Alert and oriented X 3, Normal speech, Other (Continued rhythmic motions consistent with antipsychotic use, she says these are improved now that her PCP put her on propranolol.) Results - Vitals Vitals: Vital Signs - 24 hr 01/13/18 13:19 Temperature 35.7 C L Heart Rate 84 Respiratory 16 Rate Blood Pressure 121/71 O2 Saturation 99 Oxygen O2 Source Room air PD MEDICAL DECISION MAKING - ED course ED course: 47-year-old woman with gastritis pending a Helicobacter pylori breath test and she is unable to tolerate being off of her PPI. We will restarted and she is advised to talk with her doctor about alternative testing for peptic ulcer disease/gastritis. - Sepsis Event Vital Signs: Vital Signs - 24 hr 01/13/18 13:19 Temperature 35.7 C L Heart Rate 84 Respiratory 16 Rate Blood Pressure 121/71 O2 Saturation 99 Oxygen O2 Source Room air Departure - Departure Disposition: 01 Home, Self Care Clinical Impression: Gastritis Qualifiers: Gastritis type: unspecified gastritis Chronicity: chronic Gastritis bleeding: without bleeding Qualified Code(s): K29.50 - Unspecified chronic gastritis without bleeding Condition: Good Record reviewed to determine appropriate education?: Yes Instructions: ED Gastritis Prescriptions: Omeprazole 20 mg PO DAILY #20 capsule. Comments: Talk with your doctor about alternative testing for Helicobacter pylori since you cannot tolerate being off of the omeprazole.
[2018-01-13 15:14] VITALS: BP 117/81
== END 2018-01-13 15:14 | disposition home or self-care (01) ==
LOC: ED 12:57
DX: K29.50 Unspecified chronic gastritis without bleeding (principal); E03.9 Hypothyroidism, unspecified; F17.200 Nicotine dependence, unspecified, uncomplicated
CPT/HCPCS: 99283; A9270

== ENCOUNTER 2018-01-30 07:18 | Day surgery (SDC) | payer MEDICAID ==
--- NOTE | 2018-01-30 07:54 | ANESTHESIA ---
Pre-Anesthesia VS, & Labs - Diagnosis Abdominal Pain - Procedure EGD Vital Signs: Temp Pulse Resp BP Pulse Ox 37.1 C 74 18 129/91 H 95 01/30/18 07:25 01/30/18 07:25 01/30/18 07:25 01/30/18 07:25 01/30/18 07:25 Height 5 ft 2 in Weight (kg) 86.9 kg Body Mass Index 34.7 - NPO >8 hours - Is Patient ?: No Home Medications and Allergies Home Medications: Ambulatory Orders Atorvastatin Calcium 20 mg PO DAILY 01/27/18 Bupropion HCl [Bupropion Xl] 150 mg PO DAILY 01/27/18 Fexofenadine HCl 180 mg PO DAILY 01/27/18 Propranolol HCl 40 mg PO BID 01/27/18 Venlafaxine HCl [Effexor Xr] 300 mg PO DAILY 01/27/18 Levothyroxine [Synthroid] 100 mcg PO QDAC 01/13/16 lamoTRIgine [LaMICtal] 100 mg PO DAILY 05/08/16 Aspirin 81 mg PO DAILY 11/29/17 traZODone [Desyrel] 100 mg PO DAILY PM 11/29/17 Atorvastatin Calcium 20 mg PO DAILY 01/27/18 Bupropion HCl [Bupropion Xl] 150 mg PO DAILY 01/27/18 Fexofenadine HCl 180 mg PO DAILY 01/27/18 Propranolol HCl 40 mg PO BID 01/27/18 Venlafaxine HCl [Effexor Xr] 300 mg PO DAILY 01/27/18 Allergies/Adverse Reactions: Allergies Allergy/AdvReac Type Severity Reaction Status Date / Time divalproex sodium Allergy Unknown Verified 01/13/18 13:22 [From Depakote] lithium Allergy Cramps Verified 01/13/18 13:22 Penicillins Allergy Respiratory Verified 01/13/18 13:22 Sulfa (Sulfonamide Allergy Respiratory Verified 01/13/18 13:22 Antibiotics) Anes History & Medical History - Anesthetic History Anesthesia Complications: reports: No previous complications - Medical History Cardiovascular: reports: Hypertension, High cholesterol Gastrointestinal: reports: Other (Nausea and abdominal pain) Urinary: reports: None Neuro: reports: Headaches, Other (Small brain aneurysm) Musculoskeletal: reports: Chronic back pain Endocrine/Autoimmune: reports: HyPOthyroidism Smoking Status: Current every day smoker (None for 3 weeks, vapes. 15pk year history) Psychosocial: reports: Depression, Anxiety, Cannabis - Surgical History Urologic: Bladder surgery Exam General: Alert, Oriented x3, Cooperative, No acute distress Dental: WNL Mouth Openin Fingerbreadth Neck Mobility: Normal Mallampati classification: III Thyromental Distance: 4-6 cm Respiratory: Lungs clear, Normal breath sounds, No respiratory distress, No accessory muscle use Cardiovascular: Regular rate, Normal S1, Normal S2, No murmurs Mental/Cognitive Status: Alert/Oriented X3, Normal for patient Cognitive Status: Within normal limits Plan Anesthesia Type: MAC Consent for Procedure(s) Verified and Reviewed: Yes Code Status: Attempt Resuscitation ASA classification: 2-Mild systemic disease Is this case an emergency?: No
[2018-01-30] MEDS ORDERED: LACTATED RINGERS 1,000 ML IV ONE (07:56)
[2018-01-30] MEDS ORDERED: LIDOCAINE JELLY 2% 30 ML TUBE TOP ONE (08:32)
[2018-01-30] MEDS ORDERED: BENZOCAINE/TETRACAINE/BUTAMBEN 20 GM TOP ONE (08:49)
[2018-01-30] MEDS ORDERED: LIDOCAINE-MPF 2% 5 ML VIAL IM ONE (09:05)
[2018-01-30] MEDS ORDERED: PROPOFOL 200 MG/20 ML VIAL IVP ONE (09:05)
[2018-01-30 10:00] VITALS: BP 110/68
--- NOTE | 2018-01-30 12:07 | OPERATIVE REPORT ---
DATE OF SERVICE: 01/30/2018 Physician: Isai Christensen MD PREOPERATIVE DIAGNOSIS: Abdominal pain. POSTOPERATIVE DIAGNOSIS: Aborted procedure. NAME OF PROCEDURE: EGD. SURGEON: Isai Christensen MD. ANESTHESIA: MAC INDICATIONS FOR PROCEDURE: The patient is a 47-year-old woman who has had 3 months of abdominal pain, appears to be gastric in nature, requesting an EGD. PROCEDURE IN DETAIL: The risks and benefits were explained to the patient. She agreed to the procedure. She was taken to the operating room and anesthesia initiated sedation. A timeout was performed. Everyone in the room agreed to the procedure. We began by introducing an endoscope through the mouth, past the oropharynx, into the esophagus and into the stomach. The stomach, however, was completely full of food. It was not possible to clear this out to continue the procedure. Therefore, the scope was slowly withdrawn. No abnormalities were seen in the esophagus or oropharynx. This terminated the procedure. SPECIMEN: None. COMPLICATIONS: None. PLAN: The patient will go home today and have a gastric emptying study performed prior to her next clinic visit. She states her last meal was the night before the procedure. TD: 01/30/2018 09:04 ETHAN
== END 2018-01-30 07:19 | disposition home or self-care (01) ==
LOC: SDS 07:18
PROVIDERS: ATTEND Surgery
PROC: 0DJ08ZZ Inspection of Upper Intestinal Tract, Via Natural or Artificial Opening Endoscopic (ICD-10-PCS; principal; 2018-01-30 08:15)
DX: R10.13 Epigastric pain (principal); I10 Essential (primary) hypertension; E78.00 Pure hypercholesterolemia, unspecified; R51 Headache; F17.290 Nicotine dependence, other tobacco product, uncomplicated
CPT/HCPCS: 43235; A9270; J7120

== ENCOUNTER 2018-12-09 08:09 | Outpatient (CLI) | payer MEDICAID ==
[2018-12-09 13:05] LABS: BASOPHILS # (AUTO) 0.1 10^3/uL (0.0-0.1); BASOPHILS % (AUTO) 0.7 %; HGB - HEMOGLOBIN 13.4 g/dL (12.0-16.0); LYMPHOCYTES # (AUTO) 1.5 10^3/uL (1.5-3.5); LYMPHOCYTES % (AUTO) 21.7 %; MEAN CORPUSCULAR HEMOGLOBIN 30.6 pg (27.0-31.0); MEAN CORPUSCULAR VOLUME 92.7 fL (81.0-99.0); MEAN PLATELET VOLUME 10.6 fL (7.9-10.8); MONOCYTES # (AUTO) 0.4 10^3/uL (0.0-1.0); MONOCYTES % (AUTO) 6.3 %; PLT - PLATELET COUNT 217 10^3/uL (130-450); RED BLOOD COUNT 4.38 10^6/uL (4.20-5.40); RED CELL DISTRIBUTION WIDTH 13.2 % (12.0-15.0)
[2018-12-09 13:19] LABS: ALBUMIN 4.1 g/dL (3.2-5.5); ALBUMIN/GLOBULIN RATIO 1.6 (1.0-2.2); ALKALINE PHOSPHATASE 92 IU/L (42-121); ALT ALANINE AMINOTRANSFERASE 13 IU/L (10-60); AST ASPARTATE AMINOTRANSFERASE 18 IU/L (10-42); BILIRUBIN,TOTAL 0.7 mg/dL (0.2-1.0); BUN - BLOOD UREA NITROGEN 11 mg/dL (6-20); CALCIUM 9.2 mg/dL (8.5-10.3); CARBON DIOXIDE - CO2 29 mmol/L (21-32); CHLORIDE 105 mmol/L (101-111); CHOL/HDL RATIO 4.2 (<4.4); CHOLESTEROL 206 mg/dL; CREATININE 1.2 mg/dL (0.4-1.0); GFR - MDRD 48 (>89); GLUCOSE 101 mg/dL (70-100); HDL CHOLESTEROL 49 mg/dL; LDL CHOLESTEROL,CALCULATED 135 mg/dL; LDL/HDL RATIO 2.8 (<4.4); SODIUM 141 mmol/L (135-145); TOTAL PROTEIN 6.6 g/dL (6.7-8.2); VLDL CHOLESTEROL 22 mg/dL
== END 2018-12-09 23:59 | disposition home or self-care (01) ==
LOC: LAB.N 08:09
PROVIDERS: ATTEND Nurse Practitioner Gerontology
DX: E03.9 Hypothyroidism, unspecified (principal); Z79.899 Other long term (current) drug therapy
CPT/HCPCS: 36415; 80053; 80061; 80175; 83721; 84443; 85025

== ENCOUNTER 2019-08-02 08:00 | Outpatient (CLI) | payer MEDICAID ==
[2019-08-02 13:19] LABS: CREATININE 1.1 mg/dL (0.4-1.0)
== END 2019-08-02 23:59 | disposition home or self-care (01) ==
LOC: LAB.WCP 08:00
PROVIDERS: ATTEND Physician Assistant Medical
DX: N18.9 Chronic kidney disease, unspecified (principal)
CPT/HCPCS: 36415; 80048

== ENCOUNTER 2019-08-17 08:00 | Outpatient (CLI) | payer MEDICAID ==
[2019-08-17 13:37] LABS: BASOPHILS # (AUTO) 0.1 10^3/uL (0.0-0.1); BASOPHILS % (AUTO) 0.7 %; HGB - HEMOGLOBIN 13.9 g/dL (12.0-16.0); LYMPHOCYTES # (AUTO) 1.9 10^3/uL (1.5-3.5); MEAN CORPUSCULAR HEMOGLOBIN 29.3 pg (27.0-31.0); MEAN CORPUSCULAR HGB CONC 31.7 g/dL (32.0-36.0); MEAN CORPUSCULAR VOLUME 92.4 fL (81.0-99.0); MEAN PLATELET VOLUME 10.2 fL (7.9-10.8); MONOCYTES # (AUTO) 0.4 10^3/uL (0.0-1.0); MONOCYTES % (AUTO) 5.3 %; NEUTROPHILS # (AUTO) 4.7 10^3/uL (1.5-6.6); NEUTROPHILS % (AUTO) 66.7 %; PLT - PLATELET COUNT 271 10^3/uL (130-450); RED BLOOD COUNT 4.75 10^6/uL (4.20-5.40); RED CELL DISTRIBUTION WIDTH 13.3 % (12.0-15.0)
[2019-08-17 13:40] LABS: ALBUMIN/GLOBULIN RATIO 1.5 (1.0-2.2); ALKALINE PHOSPHATASE 118 IU/L (42-121); ALT ALANINE AMINOTRANSFERASE 14 IU/L (10-60); AST ASPARTATE AMINOTRANSFERASE 19 IU/L (10-42); BILIRUBIN,TOTAL 0.6 mg/dL (0.2-1.0); BUN - BLOOD UREA NITROGEN 14 mg/dL (6-20); CALCIUM 9.1 mg/dL (8.5-10.3); CARBON DIOXIDE - CO2 25 mmol/L (21-32); CHLORIDE 106 mmol/L (101-111); CHOLESTEROL 242 mg/dL; CREATININE 1.1 mg/dL (0.4-1.0); GLUCOSE 106 mg/dL (70-100); HDL CHOLESTEROL 48 mg/dL; LDL CHOLESTEROL,CALCULATED 161 mg/dL; LDL/HDL RATIO 3.4 (<4.4); SODIUM 140 mmol/L (135-145); TOTAL PROTEIN 6.7 g/dL (6.7-8.2); VLDL CHOLESTEROL 33 mg/dL
== END 2019-08-17 23:59 | disposition home or self-care (01) ==
LOC: LAB.WCP 08:00
PROVIDERS: ATTEND Nurse Practitioner
DX: R60.9 Edema, unspecified (principal); N18.9 Chronic kidney disease, unspecified; E78.5 Hyperlipidemia, unspecified; E03.9 Hypothyroidism, unspecified; Z79.899 Other long term (current) drug therapy; Z51.81 Encounter for therapeutic drug level monitoring
CPT/HCPCS: 36415; 80053; 80061; 83721; 84443; 85025

== ENCOUNTER 2020-04-19 12:12 | Emergency (ER) | payer MEDICAID ==
--- NOTE | 2020-04-19 13:09 | ED Physician Documentation ---
History of Present Illness - Stated complaint Stated Complaint: MOUTH PX - Chief complaint Chief Complaint: Heent - Additonal information Additional information: 50-year-old female presents to the emergency department for evaluation of mouth pain and mouth sores. She has had this for about 3 weeks. She was seen at a [facility] dental clinic in [place] yesterday. She reports that they were concerned about the lesions and wanted her to get a biopsy with an oral surgeon. However due to her insurance she was unable to see the surgeons in [place]. She has been referred to [facility]. She is here today due to poorly controlled pain Teeth in her lower mouth are in generally poor repair. She has dentures in the upper mouth. pt is a daily smoker Review of Systems Constitutional: reports: Reviewed and negative Eyes: reports: Reviewed and negative Ears: reports: Reviewed and negative Nose: reports: Reviewed and negative Throat: reports: Oral lesions / sores Cardiac: reports: Reviewed and negative Respiratory: reports: Reviewed and negative GI: reports: Reviewed and negative : reports: Reviewed and negative PD PAST MEDICAL HISTORY - Past Medical History Cardiovascular: Hypertension, High cholesterol Respiratory: Asthma, COPD, Pneumonia Neuro: Headaches, Other (Small brain aneurysm) Endocrine/Autoimmune: HyPOthyroidism GI: Other (Nausea and abdominal pain) : None HEENT: None Psych: Depression, Anxiety, Bipolar disorder, Panic attacks, ADD/ADHD Musculoskeletal: Chronic back pain - Past Surgical History Past Surgical History: No - Present Medications Home Medications: Ambulatory Orders Medication Instructions Recorded Confirmed Levothyroxine [Synthroid] 100 mcg PO QDAC 01/13/16 01/30/18 lamoTRIgine [LaMICtal] 100 mg PO DAILY 05/08/16 01/30/18 Aspirin 81 mg PO DAILY 11/29/17 01/30/18 Propranolol HCl 40 mg PO BID 01/27/18 01/30/18 Venlafaxine HCl [Effexor Xr] 300 mg PO DAILY 01/27/18 01/30/18 Hydrocodone/Acetaminophen [[place] 1 each PO BID PRN #10 tablet 04/19/20 5-325 Tablet] Lidocaine Viscous 2% [Xylocaine 0 ml MM Q4H #1 bottle 04/19/20 Viscous 2%] Minocycline HCl 100 mg PO BID #20 capsule 04/19/20 - Allergies Allergies/Adverse Reactions: Allergies Allergy/AdvReac Type Severity Reaction Status Date / Time divalproex sodium Allergy Unknown Verified 04/19/20 12:38 [From Depakote] lithium Allergy Cramps Verified 04/19/20 12:38 Penicillins Allergy Respiratory Verified 04/19/20 12:38 Sulfa (Sulfonamide Allergy Respiratory Verified 04/19/20 12:38 Antibiotics) - Social History Does the pt smoke?: Yes Smoking Status: Current every day smoker (None for 3 weeks, vapes. 15pk year history) Does the pt drink ETOH?: No Does the pt have substance abuse?: No - Immunizations Immunizations are current?: Yes - POLST Patient has POLST: No PD ED PE EXPANDED - General General: Alert, In Pain - HEENT HEENT: Oral lesions / sores (Shallow red ulceration on the lower jaw in front of the lip with some surrounding pustules.) Results - Vitals Vitals: Vital Signs - 24 hr 04/19/20 12:33 Temperature 36.7 C Heart Rate 61 Respiratory 16 Rate Blood Pressure 125/78 O2 Saturation 97 Oxygen O2 Source Room air PD MEDICAL DECISION MAKING - ED course Complexity details: reviewed results, re-evaluated patient, considered differential, d/w patient ED course: 50-year-old female presents to the emergency department with 3 weeks of lower mo uth/jaw pain. Was seen at a dentist yesterday and found to have an old oral ulceration that was worrisome. They recommended a biopsy. Due to her insurance she has been referred to [facility]. Patient is here today because of worsening pain. On exam she does have a shallow ulceration that is worrisome. She does have some surrounding pustules that are also indicative of infection. Unfortunately she will need a biopsy. We will start her on some Augmentin. I have encouraged her to have very close follow-up with [facility] as any oral lesion in a smoker is current and concerning for cancer. I will also write a rx for limited amount of norco and lidocaine mouth wash Departure - Departure Disposition: 01 Home, Self Care Clinical Impression: Lesion of mouth, Dental infection Condition: Stable Record reviewed to determine appropriate education?: Yes Follow-Up: [facility] [Provider Group] Prescriptions: Minocycline HCl 100 mg PO BID #20 capsule Hydrocodone/Acetaminophen [[place] 5-325 Tablet] 1 each PO BID PRN #10 tablet PRN Reason: Pain Lidocaine Viscous 2% [Xylocaine Viscous 2%] 0 ml MM Q4H #1 bottle Comments: Shaila the lesion in your mouth is worrisome and could be a sign of cancer. It is important that you continue to follow-up with [facility] oral surgeons to get a biopsy done. However you may have a superficial infection surrounding this. I have ordered a prescription of antibiotics. Please fill that prescription and begin taking immediately. To help with pain I have prescribed a lidocaine solution that you can use every 4-6 hours. This should help numb the area. I have also prescribed a very limited amount of hydrocodone for pain. The emergency department cannot refill this.
[2020-04-19 13:33] VITALS: BP 123/78
== END 2020-04-19 13:39 | disposition home or self-care (01) ==
LOC: ED 12:12
DX: K12.1 Other forms of stomatitis (principal); K04.7 Periapical abscess without sinus; F17.290 Nicotine dependence, other tobacco product, uncomplicated; I10 Essential (primary) hypertension; Z79.82 Long term (current) use of aspirin
CPT/HCPCS: 99283

== ENCOUNTER 2021-03-18 10:17 | Emergency (ER) | payer MEDICAID ==
[2021-03-18] MEDS ORDERED: IBUPROFEN 600 MG TABLET PO STA (11:14)
[2021-03-18] MEDS ORDERED: oxyCODONE 5 MG TABLET PO STA (11:57)
--- NOTE | 2021-03-18 12:01 | ED Physician Documentation ---
History of Present Illness - Stated complaint Stated Complaint: LEFT SIDE RIB PX - Chief complaint Chief Complaint: General - History obtained from History obtained from: Patient - Additonal information Additional information: 10 days ago she fell hitting her left chest wall against a wood post and has significant persistent pain there that is worse with deep breathing. No other injuries. Review of Systems Constitutional: reports: Reviewed and negative Eyes: reports: Reviewed and negative Ears: reports: Reviewed and negative Throat: reports: Reviewed and negative PD PAST MEDICAL HISTORY - Past Medical History Cardiovascular: Hypertension, High cholesterol Respiratory: Asthma, COPD, Pneumonia Neuro: Headaches, Other (Small brain aneurysm) Endocrine/Autoimmune: HyPOthyroidism GI: Other (Nausea and abdominal pain) : None HEENT: None Psych: Depression, Anxiety, Bipolar disorder, Panic attacks, ADD/ADHD Musculoskeletal: Chronic back pain - Past Surgical History Past Surgical History: No - Present Medications Home Medications: Ambulatory Orders Medication Instructions Recorded Confirmed Levothyroxine [Synthroid] 100 mcg PO QDAC 01/13/16 04/19/20 lamoTRIgine [LaMICtal] 100 mg PO DAILY 05/08/16 04/19/20 Aspirin 81 mg PO DAILY 11/29/17 04/19/20 Propranolol HCl 40 mg PO BID 01/27/18 04/19/20 Venlafaxine HCl [Effexor Xr] 300 mg PO DAILY 01/27/18 04/19/20 Hydrocodone/Acetaminophen [[place] 1 each PO BID PRN #10 tablet 04/19/20 5-325 Tablet] Lidocaine Viscous 2% [Xylocaine 0 ml MM Q4H #1 bottle 04/19/20 Viscous 2%] Minocycline HCl 100 mg PO BID #20 capsule 04/19/20 Oxycodone HCl/Acetaminophen 1 - 2 each PO Q6H PRN #20 tablet 03/18/21 [Percocet 5-325 mg Tablet] - Allergies Allergies/Adverse Reactions: Allergies Allergy/AdvReac Type Severity Reaction Status Date / Time divalproex sodium Allergy Unknown Verified 03/18/21 10:31 [From Depakote] lithium Allergy Cramps Verified 03/18/21 10:31 Penicillins Allergy Respiratory Verified 03/18/21 10:31 Sulfa (Sulfonamide Allergy Respiratory Verified 03/18/21 10:31 Antibiotics) - Social History Does the pt smoke?: Yes Smoking Status: Current every day smoker (None for 3 weeks, vapes. 15pk year history) Does the pt drink ETOH?: No Does the pt have substance abuse?: No - Immunizations Immunizations are current?: Yes - POLST Patient has POLST: No PD ED PE NORMAL - Vitals Vital signs reviewed: Yes - General General: Alert and oriented X 3, No acute distress - Cardiac Cardiac: RRR, No murmur - Respiratory Respiratory: No respiratory distress, Clear bilaterally, Other (Some tenderness of the left lateral chest wall without deformity. No upper abdominal tenderness.) - Neuro Neuro: Alert and oriented X 3, Normal speech Results - Vitals Vitals: Vital Signs - 24 hr 03/18/21 10:26 Temperature 36.9 C Heart Rate 66 Respiratory 16 Rate Blood Pressure 123/74 O2 Saturation 99 Oxygen O2 Source Room air - Rads (name of study) Left ribs and PA chest series Radiology: EMP read contemporaneously (NAD) Departure - Departure Disposition: 01 Home, Self Care Clinical Impression: Chest wall contusion Qualifiers: Encounter type: initial encounter Laterality: left Qualified Code(s): S20.212A - Contusion of left front wall of thorax, initial encounter Condition: Good Record reviewed to determine appropriate education?: Yes Instructions: ED Contusion Chest Wall Prescriptions: Oxycodone HCl/Acetaminophen [Percocet 5-325 mg Tablet] 1 - 2 each PO Q6H PRN #20 tablet PRN Reason: pain Comments: Prescription sent electronically to [facility] in [place] Call your doctor to arrange a follow-up appointment, make the next available appointment. In the interim, return anytime if worse or if new symptoms develop. I am prescribing a short course of narcotic pain medication for you. These are potentially dangerous and addictive medications that should be used carefully. These medications may constipate you. Take an [id number] stool softener (docusate) twice daily with plenty of water while taking these medications. If you go 24 hours without a bowel movement, take [id number] miralax, per package instructions. Do not drink or drive while taking these medications. If you received narcotic or sedating medications while in the emergency department, do not drive for 24 hours. Store this medication in a safe, secure place and out of reach of children. It is a violation of federal law to give or sell this medication to another person or to use in a manner other than prescribed. The ED will not refill narcotic prescriptions, including prescriptions lost or stolen. To dispose of unwanted medications: 1. [facility] at [address] in [place] has a medication drop box. They accept prescription medications (in pill form) Friday through Friday 9:00 a.m. to 5:00 p.m. 2. The [facility] [employer] accepts prescription medications (in pill form only) for disposal year round. Call for more information. 3. Contact the [facility] for the next [facility] sponsored prescription drug collection event. , [phone], or [phone]; Note that many narcotic pain relievers also contain Tylenol/acetaminophen. Please ensure that your total dose of acetaminophen from all sources does not exceed 3 g (3000 mg) per day.
--- NOTE | 2021-03-18 12:19 | XRAY Report ---
PROCEDURE: Ribs w/PA Chest LT INDICATIONS: rib inj TECHNIQUE: 3 views of the left ribs were acquired, along with a single view chest. COMPARISON: 01/17/2016 plain film. FINDINGS: Surgical changes and devices: None. Bones and chest wall: No fractures or dislocations. No suspicious bony lesions. Overlying soft tis sues appear unremarkable. Lungs and pleura: No pleural effusions or pneumothorax. Lungs appear clear. Mediastinum: Mediastinal contours appear normal. Heart size is normal. IMPRESSION: No acute fracture. No osseous lesion. If symptoms and/or clinical suspicion for pathology continue, f urther assessment with repeat plain films, or advanced imaging (e.g., CT or bone scan) is recommended for further assessment. Reviewed by: Nathan Mabry MD on 03/18/2021 11:18 AM [facility] Approved by: Nathan Mabry MD on 03/18/2021 11:18 AM [facility] Station ID: [id number]
[2021-03-18 12:48] VITALS: BP 122/56
== END 2021-03-18 12:48 | disposition home or self-care (01) ==
LOC: ED 10:17
DX: S20.212A Contusion of left front wall of thorax, initial encounter (principal); W19.XXXA Unspecified fall, initial encounter; W22.09XA Striking against other stationary object, initial encounter; F17.290 Nicotine dependence, other tobacco product, uncomplicated; I10 Essential (primary) hypertension; Z79.82 Long term (current) use of aspirin
CPT/HCPCS: 71101; 99283; A9270

== ENCOUNTER 2021-10-19 08:00 | Outpatient (CLI) | payer MEDICAID ==
[2021-10-19 12:50] LABS: THYROID STIMULATING HORMONE 0.95 uIU/mL (0.34-5.60)
[2021-10-19 12:51] LABS: FREE T3 3.07 pg/mL (2.5-3.9)
[2021-10-19 12:52] LABS: FREE T4 (FREE THYROXINE) 1.77 ng/dL (0.58-1.64)
[2021-10-19 13:02] LABS: ALBUMIN 4.3 g/dL (3.2-5.5); ALBUMIN/GLOBULIN RATIO 1.8 (1.0-2.2); ALKALINE PHOSPHATASE 80 IU/L (42-121); ALT ALANINE AMINOTRANSFERASE 12 IU/L (10-60); AST ASPARTATE AMINOTRANSFERASE 17 IU/L (10-42); BILIRUBIN,TOTAL 0.6 mg/dL (0.2-1.0); BUN - BLOOD UREA NITROGEN 9 mg/dL (6-20); CALCIUM 9.4 mg/dL (8.5-10.3); CARBON DIOXIDE - CO2 31 mmol/L (21-32); CHLORIDE 100 mmol/L (101-111); CHOL/HDL RATIO 4.8 (<4.4); CHOLESTEROL 219 mg/dL; CREATININE 1.3 mg/dL (0.4-1.0); GFR - MDRD 43 (>89); GLUCOSE 99 mg/dL (70-100); HDL CHOLESTEROL 46 mg/dL; LDL CHOLESTEROL,CALCULATED 138 mg/dL; POTASSIUM 4.4 mmol/L (3.5-5.0); SODIUM 138 mmol/L (135-145); TOTAL PROTEIN 6.7 g/dL (6.7-8.2); TRIGLYCERIDES 176 mg/dL; VLDL CHOLESTEROL 35 mg/dL
== END 2021-10-19 23:59 | disposition home or self-care (01) ==
LOC: LAB.N 08:00
PROVIDERS: ATTEND Registered Nurse
DX: E03.9 Hypothyroidism, unspecified (principal); R68.89 Other general symptoms and signs; R60.9 Edema, unspecified; E78.5 Hyperlipidemia, unspecified
CPT/HCPCS: 36415; 80053; 80061; 82306; 83721; 84439; 84443; 84481

== ENCOUNTER 2022-09-16 08:00 | Outpatient (CLI) | payer MEDICAID ==
[2022-09-16 12:04] LABS: BASOPHILS # (AUTO) 0.1 10^3/uL (0.0-0.1); BASOPHILS % (AUTO) 0.9 %; EOSINOPHILS # (AUTO) 0.1 10^3/uL (0.0-0.7); EOSINOPHILS % (AUTO) 0.9 %; HCT - HEMATOCRIT 38.8 % (37.0-47.0); HGB - HEMOGLOBIN 13.5 g/dL (12.0-16.0); LYMPHOCYTES % (AUTO) 29.6 %; MEAN CORPUSCULAR HEMOGLOBIN 31.8 pg (27.0-31.0); MEAN CORPUSCULAR HGB CONC 34.8 g/dL (32.0-36.0); MEAN CORPUSCULAR VOLUME 91.5 fL (81.0-99.0); MEAN PLATELET VOLUME 9.8 fL (7.9-10.8); MONOCYTES # (AUTO) 0.3 10^3/uL (0.0-1.0); MONOCYTES % (AUTO) 4.5 %; NEUTROPHILS # (AUTO) 4.4 10^3/uL (1.5-6.6); NEUTROPHILS % (AUTO) 63.8 %; PLT - PLATELET COUNT 316 10^3/uL (130-450); RED BLOOD COUNT 4.24 10^6/uL (4.20-5.40); RED CELL DISTRIBUTION WIDTH 12.4 % (12.0-15.0); WHITE BLOOD COUNT 6.9 x10^3/uL (4.8-10.8)
[2022-09-16 12:44] LABS: ALBUMIN 3.7 g/dL (3.2-5.5); ALBUMIN/GLOBULIN RATIO 1.3 (1.0-2.2); ALKALINE PHOSPHATASE 82 IU/L (42-121); ALT ALANINE AMINOTRANSFERASE < 10 IU/L (10-60); AST ASPARTATE AMINOTRANSFERASE 16 IU/L (10-42); BILIRUBIN,TOTAL 0.6 mg/dL (0.2-1.0); BUN - BLOOD UREA NITROGEN 5 mg/dL (6-20); CALCIUM 9.2 mg/dL (8.5-10.3); CARBON DIOXIDE - CO2 29 mmol/L (21-32); CHLORIDE 104 mmol/L (101-111); CREATININE 1.3 mg/dL (0.4-1.0); GFR - MDRD 43 (>89); GLUCOSE 102 mg/dL (70-100); POTASSIUM 3.3 mmol/L (3.5-5.0); SODIUM 141 mmol/L (135-145); TOTAL PROTEIN 6.5 g/dL (6.7-8.2)
== END 2022-09-16 23:59 | disposition home or self-care (01) ==
LOC: LAB.N 08:00 → MERGE 09:13 → LAB.N 23:59
PROVIDERS: ATTEND Physician Assistant Medical
DX: H53.8 Other visual disturbances (principal)
CPT/HCPCS: 36415; 80053; 82043; 82570; 84443; 85025

== ENCOUNTER 2023-06-16 09:29 | Outpatient (CLI) | payer MEDICAID ==
--- NOTE | 2023-06-16 13:29 | XRAY Report ---
PROCEDURE: Lumbar Spine 2-3V INDICATIONS: LOW BACK PAIN TECHNIQUE: 3 views of the lumbar spine were acquired. COMPARISON: None. FINDINGS: Bones: 5 [id number] vertebrae are present. Slight rightward curvature of the spine. No vertebr al body compression fractures. No suspicious bony lesions. Soft tissues: Overlying bowel gas pattern is normal. No suspicious soft tissue calcifications. IMPRESSION: No significant degenerative disc disease. Reviewed by: Mandeep Amin MD on 06/16/2023 1:28 PM PDT Approved by: Mandeep Amin MD on 06/16/2023 1:28 PM PDT Station ID: [id number]
== END 2023-06-16 09:30 | disposition home or self-care (01) ==
LOC: DI 09:29
PROVIDERS: ATTEND Physician Assistant Medical
DX: M54.50 Low back pain, unspecified (principal)

== ENCOUNTER 2023-08-16 08:33 | Outpatient (CLI) | payer MEDICAID, OTHER | END 2023-08-16 23:59 | disposition EMS.NT | LOC: EMS 08:33 | DX: S40.012A Contusion of left shoulder, initial encounter (principal); V49.40XA Driver injured in collision with unspecified motor vehicles in traffic accident, initial encounter; Y92.414 Local residential or business street as the place of occurrence of the external cause ==

== ENCOUNTER 2023-10-14 09:30 | Outpatient (CLI) | payer MEDICAID ==
[2023-10-14 12:32] LABS: BASOPHILS % (AUTO) 0.7 %; EOSINOPHILS # (AUTO) 0.1 10^3/uL (0.0-0.7); EOSINOPHILS % (AUTO) 1.4 %; HCT - HEMATOCRIT 39.5 % (37.0-47.0); HGB - HEMOGLOBIN 12.9 g/dL (12.0-16.0); LYMPHOCYTES # (AUTO) 1.5 10^3/uL (1.5-3.5); MEAN CORPUSCULAR HEMOGLOBIN 30.9 pg (27.0-31.0); MEAN CORPUSCULAR HGB CONC 32.7 g/dL (32.0-36.0); MEAN CORPUSCULAR VOLUME 94.7 fL (81.0-99.0); MEAN PLATELET VOLUME 9.9 fL (7.9-10.8); MONOCYTES # (AUTO) 0.3 10^3/uL (0.0-1.0); NEUTROPHILS # (AUTO) 3.6 10^3/uL (1.5-6.6); NEUTROPHILS % (AUTO) 64.7 %; PLT - PLATELET COUNT 206 10^3/uL (130-450); RED BLOOD COUNT 4.17 10^6/uL (4.20-5.40); RED CELL DISTRIBUTION WIDTH 12.8 % (12.0-15.0); WHITE BLOOD COUNT 5.5 x10^3/uL (4.8-10.8)
[2023-10-14 12:51] LABS: ALBUMIN/GLOBULIN RATIO 1.9 (1.0-2.2); ALKALINE PHOSPHATASE 92 IU/L (42-121); ALT ALANINE AMINOTRANSFERASE 8 IU/L (10-60); AST ASPARTATE AMINOTRANSFERASE 13 IU/L (10-42); BILIRUBIN,TOTAL 0.4 mg/dL (0.2-1.0); BUN - BLOOD UREA NITROGEN 13 mg/dL (6-20); CALCIUM 9.6 mg/dL (8.5-10.3); CARBON DIOXIDE - CO2 32 mmol/L (21-32); CHLORIDE 103 mmol/L (101-111); CHOL/HDL RATIO 5.9 (<4.4); CHOLESTEROL 225 mg/dL; CREATININE 1.6 mg/dL (0.6-1.3); GFR - MDRD 33 (>89); GLUCOSE 99 mg/dL (74-104); HDL CHOLESTEROL 38 mg/dL; LDL CHOLESTEROL,CALCULATED 142 mg/dL; LDL/HDL RATIO 3.7 (<4.4); POTASSIUM 4.4 mmol/L (3.5-4.5); SODIUM 139 mmol/L (135-145); TOTAL PROTEIN 6.1 g/dL (6.4-8.9); TRIGLYCERIDES 225 mg/dL; VLDL CHOLESTEROL 45 mg/dL
[2023-10-14 13:07] LABS: THYROID STIMULATING HORMONE 0.43 uIU/mL (0.34-5.60)
== END 2023-10-14 09:31 | disposition home or self-care (01) ==
LOC: LAB.N 09:30
PROVIDERS: ATTEND Physician Assistant
DX: E03.9 Hypothyroidism, unspecified (principal); E78.5 Hyperlipidemia, unspecified
CPT/HCPCS: 36415; 80053; 80061; 83721; 84439; 84443; 84481; 85025

== ENCOUNTER 2023-11-29 08:33 | Outpatient (CLI) | payer MEDICAID ==
--- NOTE | 2023-11-30 23:05 | Ultrasound Report ---
PROCEDURE: Renal (Retroperitoneal) INDICATIONS: [facility]I TECHNIQUE: Real-time scanning was performed of the retroperitoneal organs, with image documentation. COMPARISON: None. FINDINGS: Kidneys: Kidneys are normal in size. Right kidney measures 8.3 cm long; left kidney measures 8.6 cm long. Right renal cortical thickness is 1.2 cm; left renal cortical thickness is 1.2 cm. No solid masses, hydronephrosis, or nephrolithiasis. Bladder: Pre-void bladder volume is 116 mL. Post-void residual is 39 mL. Pre-void images demonstra te no intraluminal masses or stones. On pre-void images, both ureteral jets are noted with color Dop pler interrogation. (Of note, ureteral jets may not be detectable in up to 25% of cases due to insuf ficient differences in specific gravity between ureteral and bladder urine). Miscellaneous: No free abdominal fluid. IMPRESSION: No hydronephrosis. Post void residual of 39 cc. Reviewed by: Ko Jaimes MD on 11/30/2023 11:04 PM PDT Approved by: Ko Jaimes MD on 11/30/2023 11:04 PM PDT Station ID: [id number]
== END 2023-11-29 08:34 | disposition home or self-care (01) ==
LOC: DI 08:33
PROVIDERS: ATTEND Physician Assistant
DX: N17.9 Acute kidney failure, unspecified (principal); N18.9 Chronic kidney disease, unspecified